=== PATIENT | male | born 1980 | race Hispanic/Latino ===

== ENCOUNTER 2017-02-11 16:26 | Emergency (ER) | payer BC ==
[2017-02-11 16:35] VITALS: TEMP 98.1; O2SAT 98; BMI 23.7
[2017-02-11] MEDS ORDERED: Silver Sulfadiazine 1% Cream (20 gm) TOP STA (17:05)
--- NOTE | 2017-02-11 17:09 | C.PDOC ---
History Of Present Illness 36 yr old male presents to the s/p burning his right hand with a torch while at work. Patient states he was holding the canister when the cables disconnected and he burned his hand sustained 2nd degree mckinney. Patient states the pain is 8/ 10. Denies chest pain, LOC, weakness or numbness in the hand. 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 Cardiovascular: Negative for: Chest Pain Skin: Positive for: Other (Right hand 2nd degree burn) Neurological: Negative for: Weakness, Numbness Physical Exam - Physical Exam Appears: Non-toxic, No Acute Distress Skin: Warm, Dry Oral Mucosa: Moist Chest: Symmetrical, No Tenderness Cardiovascular: Rhythm Regular, No Murmur Respiratory: Normal Breath Sounds, No Rales, No Rhonchi, No Stridor, No Wheezing Extremity: Other (Right Hand - 2nd degree burn to the palm in the interdigital between spaces of 1&2 and tips of 3&4. Primary 1st degree burn with some 2nd degree burn along the palm.) Neurological/Psych: Oriented x3, Normal Speech, Normal Motor, Normal Sensation ED Course And Treatment O2 Sat by Pulse Oximetry: 98 (RA) Pulse Ox Interpretation: Normal Progress Note: Patient hand is covered in silvadene cream. Medical Decision Making Medical Decision Making: PLAN: * Silvadene TOP Disposition Counseled Patient/Family Regarding: Diagnosis, Need For Followup - Disposition [facility]: [facility] [Outside] Disposition: HOME/ ROUTINE Disposition Time: 17:09 Condition: STABLE Additional Instructions: Follow up in the [facility] [address] [facility] [phone] Prescriptions: Silver Sulfadiazine 1% 20 gm [Silvadene] 1 ea TOP DAILY #30 gr Instructions: Second Degree Burn (ED) Forms: General Discharge Instructions, [facility] (Nepali), Work Excuse - POA Present On Arrival: None - Clinical Impression Clinical Impression: Burn of hand, right, second degree - Scribe Statement The provider has reviewed the documentation as recorded by the Marla Isbell Provider Attestation: All medical record entries made by the Omeribraphael were at my direction and personally dictated by me. I have reviewed the chart and agree that the record accurately reflects my personal performance of the history, physical exam, medical decision making, and the department course for this patient. I have also personally directed, reviewed, and agree with the discharge instructions and disposition.
[2017-02-11] MEDS ORDERED: Silver Sulfadiazine 1% Cream (20 gm) ONE (17:14)
[2017-02-11 17:51] VITALS: BP 126/78; PULSE 78; RESP 16
== END 2017-02-11 17:34 | disposition home or self-care (01) ==
LOC: C.ER 16:26
DX: T23.251A Burn of second degree of right palm, initial encounter (principal); X08.8XXA Exposure to other specified smoke, fire and flames, initial encounter; Y99.0 Civilian activity done for income or pay